=== PATIENT | female | born 2000 | race Caucasian/White ===

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

== ENCOUNTER 2018-01-03 12:24 | Emergency (ER) | payer SELFPAY ==
[~2018-01-03] VITALS: Ht 170.2 cm; Wt 62.0 kg
[~2018-01-03 12:24] MED LIST changes: +ACYC800T PO; -IBUP-232 PO; -NIFE1TAB85 PO; -OXYC1TAB63 PO; -PERI8.6T PO; -PREN1CAP7 PO; -ZANT150T2 PO
[2018-01-03 12:32] VITALS: BP 123/71; PULSE 112; RESP 20; TEMP 98.9; O2SAT 99
--- NOTE | 2018-01-03 13:30 | PD ---
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 Says that she had her period earlier this month which was normal. She was alarmed today because she developed what seems like a period again this month. She has her periods are normally on a regular cycle. She denies abdominal cramping or pain. Denies nausea or vomiting or diarrhea. Says she is having some vaginal pain with associated lesions which is unchanged since her visit a couple of days ago. She admits that she accidentally destroyed the prescription she received 2 days ago. She says that she has had one sexual partner this month. PFSH Past Medical History Developmental Delay: No Diminished Hearing: No Headaches: Yes Psychiatric: Yes (MOOD DISORDER) Reproductive: Yes (genital herpes) Immunizations Current: Yes Influenza Vaccination: No ?: Not LMP: 12/24/17 : 3 Para: 2 : 1 Dilation and Curettage (D&C): Yes Past Surgical History Section: Yes Other Surgery: Yes (D+C) Social History Alcohol Use: No Tobacco Use: No Substance Use: No Allergies-Medications (Allergen,Severity, Reaction): Coded Allergies: No Known Allergies (Verified Adverse Reaction, Unknown, 12/30/17) Reported Meds & Prescriptions Reported Meds & Active Scripts Active Lidocaine Topical (Lidocaine HCl) 2 % Jel 1 Applic TOPICAL BID 5 Days Acyclovir 400 Mg Tab 400 Mg PO TID 10 Days Acyclovir 800 Mg Tab 800 Mg PO TID Review of Systems Except as stated in HPI: all other systems reviewed are Neg Physical Exam Narrative GENERAL: Well-developed well-nourished in no apparent distress SKIN: Focused skin assessment warm/dry. HEAD: Atraumatic. Normocephalic. EYES: Pupils equal and round. No scleral icterus. No injection or drainage. ENT: No nasal bleeding or discharge. Mucous membranes pink and moist. NECK: Trachea midline. No JVD. CARDIOVASCULAR: Regular rate and rhythm. No murmur appreciated. RESPIRATORY: No accessory muscle use. Clear to auscultation. Breath sounds equal bilaterally. GASTROINTESTINAL: Abdomen soft, non-tender, nondistended. Hepatic and splenic margins not palpable. GENITOURINARY: Normal external genitalia with papular lesions on erythematous base. Vaginal vault with blood. No obvious vaginal discharge Cervical os was closed without drainage. No cervical motion tenderness. Uterus nontender and nonenlarged. Bilateral adnexa nontender without masses. This was performed with the nurseNae in the room MUSCULOSKELETAL: No obvious deformities. No clubbing. No cyanosis. No edema. NEUROLOGICAL: Awake and alert. No obvious cranial nerve deficits. Motor grossly within normal limits. Normal speech. PSYCHIATRIC: Appropriate mood and affect; insight and judgment normal. Data Data Last Documented VS Vital Signs Date Time Temp Pulse Resp B/P (MAP) Pulse Ox O2 Delivery O2 Flow Rate FiO2 01/03/18 12:32 98.9 112 20 123/71 (88) 99 Orders Orders Ed Urine Pregnancytest Poc (01/03/18 13:06) Gc And Chlamydia Pcr (01/03/18 13:06) Wet Prep Profile (01/03/18 13:06) Urinalysis - C+S If Indicated (01/03/18 13:06) Urine Culture (01/03/18 13:15) Azithromycin Powd Pack (Zithromax Powd P (01/03/18 14:45) Ceftriaxone Inj (Rocephin Inj) (01/03/18 14:45) Lidocaine 1% Inj (50 Ml) (Xylocaine 1% I (01/03/18 14:45) Ed Discharge Order (01/03/18 14:36) Labs Laboratory Tests Test 01/03/18 13:15 01/03/18 13:25 Urine Color YELLOW Urine Turbidity HAZY Urine pH 6.0 Urine Specific [place] 1.028 Urine Protein 100 mg/dL Urine Glucose (UA) NEG mg/dL Urine Ketones NEG mg/dL Urine Occult Blood LARGE Urine Nitrite NEG Urine Bilirubin NEG Urine Urobilinogen LESS THAN 2.0 MG/DL Urine Leukocyte Esterase LARGE Urine RBC 108 /hpf Urine WBC 49 /hpf Urine Squamous Epithelial Cells 8 /hpf Urine Transitional Epithelial Cells <1 /hpf Urine Mucus MANY /lpf Microscopic Urinalysis Comment CULTURE INDICATED Clue Cells (Wet Prep) NONE SEEN Vaginal Trichomonas (Wet Prep) NONE SEEN Vaginal Yeast (Wet Prep) NONE SEEN Chlamydia trachomatis DNA (PCR) DETECTED Neisseria gonorrhoeae DNA (PCR) DETECTED MDM Medical Decision Making Medical Screen Exam Complete: Yes Emergency Medical Condition: Yes Differential Diagnosis HSV, PID, bacterial vaginosis, chlamydia, gonorrhea Narrative Course 17-year-old female presents emergency department evaluation of painful lesions to her vaginal area for 2 days and vaginal bleeding that started today. Says that she had her period earlier this month which was normal. She was alarmed today because she developed what seems like a period again this month. She has her periods are normally on a regular cycle. She denies abdominal cramping or pain. Denies nausea or vomiting or diarrhea. Says she is having some vaginal pain which is unchanged since her visit a couple of days ago. She admits that she accidentally destroyed the prescription she received 2 days ago. She says that she has had one sexual partner this month. Vital signs stable. Physical exam findings consistent with genital HSV infection. No cervical motion tenderness on vaginal exam. Renewed the acyclovir prescription. Treated pt with azithromycin and rocephin as pt developed an HSV infection and is a concern for co-infections. She agreed to treatment versus waiting for the results to return. Reassured her regarding the vaginal bleeding. I do not suspect any other emergent etiology. She is advised to follow-up with a welt rander and her primary care physician for further treatment and evaluation. Diagnosis Primary Impression: HSV (herpes simplex virus) infection Referrals: [facility] Additional Instructions: AVOID ALL SEXUAL ACTIVITY until your lesions have completely healed and your pain is gone. USE LIDOCAINE PRESCRIBED to avoid complications. You were treated with 2 antibiotics in the emergency department today. You do not require any more antibiotics. You also are receiving acyclovir for a viral infection. Please take this medication as prescribed. If you develop fever, chills, severe abdominal pain, persistent vomiting or inability to eat return to the emergency department. Your pelvic exam today did not include a Pap smear. It is important to followup with a welt rander on a regular basis to be tested for cervical cancer as we do not perform that test from the emergency department. If there is a concern that you have sexually transmitted disease, your partner should be tested. You should followup with your welt rander or with the health department to get tested for other sexually transmitted diseases like HIV and syphilis if there is suspicion of other infections, as we do not test for these in the emergency department Scripts Lidocaine Topical (Lidocaine Topical) 2 % Jel 1 APPLIC TOPICAL BID for Pain Management for 5 Days, GM 0 Refills Prov: Vargas Pate MD 01/03/18 Acyclovir (Acyclovir) 400 Mg Tab 400 MG PO TID for Mgmt Viral Infection for 10 Days, TAB 0 Refills Prov: Vargas Pate MD 01/03/18 Disposition: 01 DISCHARGE HOME Condition: Stable Leatha Barber January 03, 2018 13:30
[2018-01-03] MEDS ORDERED: ACYC400T PO (13:34)
[2018-01-03 14:14] LABS: BILIRUBIN, URINE NEG (NEG); BLOOD, URINE LARGE (NEG); GLUCOSE,URINE NEG (NEG); KETONE, URINE NEG (NEG); MUCUS URINE MANY /lpf (OCC); NITRITE,URINE NEG (NEG); SQUAMOUS EPITHELIAL CELL URINE 8 /hpf (0-5); TRANSITIONAL EPI CELLS, URINE <1 /hpf; URINE COLOR YELLOW (YELLW/STRAW); URINE LEUKOCYTE ESTERASE LARGE (NEG)
[2018-01-03] MEDS ORDERED: LIDO2GEL11 TOPICAL (14:31)
[2018-01-03] MEDS ORDERED: AZITHROMYCIN PWD FOR SUSP 1 GM PACKET PO ONE (14:45)
[2018-01-03] MEDS ORDERED: cefTRIAXone 250 MG VIAL IM ONE (14:45)
[2018-01-03] MEDS ORDERED: LIDOCAINE HCL 1% 50 ML VIAL IM ONE (14:45)
== END 2018-01-03 15:38 | disposition home or self-care (01) ==
LOC: NEPD 12:24
DX: B00.9 Herpesviral infection, unspecified (principal)
CPT/HCPCS: 81001; 84703; 87086; 87210; 87491; 87591; 96372; 99284; J0696